=== PATIENT | female | born 1955 | race Caucasian/White ===

== ENCOUNTER 2020-08-05 05:52 | Emergency (ER) | payer MEDICARE ==
[~2020-08-05 05:52] MED LIST: ASPIRIN EC81 MG PO; COREG 6.25MG6.25 MG PO; FIORICET1 EACH PO
[2020-08-05 06:28] LABS: INR 1.02 (0.9-1.2); PROTHROMBIN TIME 12.7 SECONDS (11.4-13.6); PTT 29.2 SECONDS (22.2-34.7)
[2020-08-05 06:30] LABS: D-DIMER 0.32 ug/mLFEU (0.00-0.41)
[2020-08-05 06:43] LABS: BILIRUBIN - TOTAL 0.4 mg/dL (0.2-1.0); BUN/CREAT RATIO (CALC) 13.5 RATIO; CREATININE 0.74 mg/dL (0.51-0.95); GLOBULIN (CALCULATION) 3.5 g/dL; POTASSIUM 4.2 mmol/L (3.5-5.1); TOTAL PROTEIN 7.5 g/dL (6.4-8.2)
[2020-08-05 07:15] LABS: BASOPHIL 0.4 % (0-2); EOSINOPHIL 3.4 % (0-7); HCT 36.6 % (37.0-47.0); HGB 12.6 g/dl (12.5-16.0); LYMPHOCYTE 35.8 % (15-48); MCH 31.8 pg (25.0-31.0); MCHC 34.4 g/dL (32.0-36.0); MCV 92.4 fL (78.0-100.0); MONOCYTE 12.6 % (0-12); MPV 9.4 fL (6.0-9.5); NEUTROPHIL 47.7 % (41-80); NRBC 0; PLT 143 K/uL (150-400); RBC 3.96 M/uL (4.20-5.40); RDW 11.8 % (11.5-14.0); WBC 6.7 K/uL (4.0-10.5)
[2020-08-05 09:04] LABS: CORONAVIRUS 2019 SARS-COV-2 NEGATIVE (NEGATIVE); INFLUENZA A NAA NEGATIVE (NEGATIVE)
== END 2020-08-05 09:16 | disposition other institution (70) ==
LOC: FER 05:52
PROVIDERS: Emergency Medicine; Emergency Medicine Emergency Medical Services
DX: I21.4 Non-ST elevation (NSTEMI) myocardial infarction (principal); I25.2 Old myocardial infarction; I25.10 Atherosclerotic heart disease of native coronary artery without angina pectoris; Z90.710 Acquired absence of both cervix and uterus; Z98.51 Tubal ligation status; Z79.82 Long term (current) use of aspirin; Z88.0 Allergy status to penicillin; Z88.8 Allergy status to other drugs, medicaments and biological substances; Z20.822 Contact with and (suspected) exposure to COVID-19
CPT/HCPCS: 36415; 71045; 80053; 83690; 83880; 84484; 85025; 85379; 85610; 85730; 93005; J1644; J2270; J2405; J2550; J7030; J7060; U0002

== ENCOUNTER 2021-03-08 10:14 | Emergency (ER) | payer MEDICARE ==
[2021-03-08] MEDS ORDERED: NAPROXEN500 MG PO (13:03)
[2021-03-08] MEDS ORDERED: NORCO 5-325 TA1 EACH PO (13:09)
== END 2021-03-08 13:22 | disposition home or self-care (01) ==
LOC: FER 10:14
DX: M25.532 Pain in left wrist (principal); I25.2 Old myocardial infarction; Z88.0 Allergy status to penicillin; Z88.5 Allergy status to narcotic agent; Z88.8 Allergy status to other drugs, medicaments and biological substances
CPT/HCPCS: 73110; J2930

== ENCOUNTER 2021-06-07 07:21 | Emergency (ER) | payer MEDICARE ==
[~2021-06-07 07:21] MED LIST changes: +NAPROXEN500 MG PO; +NORCO 5-325 TA1 EACH PO
[2021-06-07 07:45] LABS: BASOPHIL 0.7 % (0-2); HCT 39.1 % (37.0-47.0); HGB 13.2 g/dl (12.5-16.0); LYMPHOCYTE 35.4 % (15-48); MCH 30.9 pg (25.0-31.0); MCHC 33.8 g/dL (32.0-36.0); MCV 91.6 fL (78.0-100.0); MONOCYTE 11.1 % (0-12); NEUTROPHIL 48.5 % (41-80); NRBC 0; PLT 177 K/uL (150-400); RBC 4.27 M/uL (4.20-5.40); RDW 12.3 % (11.5-14.0); WBC 5.8 K/uL (4.0-10.5)
[2021-06-07 07:57] LABS: INR 1.03 (0.9-1.2); PROTHROMBIN TIME 12.9 SECONDS (11.8-13.4); PTT 26.8 SECONDS (24.4-34.7)
[2021-06-07 08:02] LABS: BILIRUBIN - TOTAL 0.4 mg/dL (0.2-1.0); BUN/CREAT RATIO (CALC) 15.6 RATIO; CREATININE 0.64 mg/dL (0.51-0.95); GLOBULIN (CALCULATION) 3.7 g/dL; TOTAL PROTEIN 7.7 g/dL (6.4-8.2)
[2021-06-07 12:01] LABS: IRON % SATURATION 26.2 %SAT (20-50)
[2021-06-07] MEDS ORDERED: ANTIVERT25 MG PO (12:56)
[2021-06-07] MEDS ORDERED: ONDANSETRON ODT4 MG PO (12:56)
[2021-06-08] MEDS ORDERED: MEDROL 4MG DOSEP4 MG PO (17:32)
[2021-06-08] MEDS ORDERED: CYCLOBENZAPRINE10 MG PO (17:32)
== END 2021-06-07 13:17 | disposition home or self-care (01) ==
LOC: FER 07:21
PROVIDERS: Emergency Medicine
DX: R11.2 Nausea with vomiting, unspecified (principal); R42 Dizziness and giddiness; Z88.0 Allergy status to penicillin; Z88.1 Allergy status to other antibiotic agents; Z88.6 Allergy status to analgesic agent; Z20.822 Contact with and (suspected) exposure to COVID-19
CPT/HCPCS: 36415; 71045; 80053; 83540; 83550; 83690; 83735; 83880; 84484; 85025; 85610; 85730; 93005; J2405; J3475; J7030; U0002

== ENCOUNTER 2021-06-08 15:28 | Emergency (ER) | payer OTHER, MEDICARE ==
[~2021-06-08 15:28] MED LIST changes: +ANTIVERT25 MG PO; +ONDANSETRON ODT4 MG PO
[2021-06-08] MEDS ORDERED: MEDROL 4MG DOSEP4 MG PO (17:32)
[2021-06-08] MEDS ORDERED: CYCLOBENZAPRINE10 MG PO (17:32)
== END 2021-06-08 17:43 | disposition home or self-care (01) ==
LOC: FER 15:28
DX: S13.4XXA Sprain of ligaments of cervical spine, initial encounter (principal); S23.3XXA Sprain of ligaments of thoracic spine, initial encounter; S33.5XXA Sprain of ligaments of lumbar spine, initial encounter; R51.9 Headache, unspecified; Z88.0 Allergy status to penicillin; Z88.8 Allergy status to other drugs, medicaments and biological substances; Z88.6 Allergy status to analgesic agent; V44.5XXA Car driver injured in collision with heavy transport vehicle or bus in traffic accident, initial encounter
CPT/HCPCS: 70450; 72125; 72128; 72131; 73110